=== PATIENT | male | born 1960 | race Caucasian/White ===

== ENCOUNTER 2018-05-25 10:25 | Emergency (ER) | payer OTHER ==
[~2018-05-25] VITALS: Ht 188 cm; Wt 69.8 kg
[2018-05-25] MEDS ORDERED: EYE DROPS (10:44)
[2018-05-25 11:22] VITALS: BP 148/70
== END 2018-05-25 11:23 | disposition home or self-care (01) ==
LOC: M.ERS 10:25
DX: S80.02XA Contusion of left knee, initial encounter (principal); Z88.0 Allergy status to penicillin; W22.8XXA Striking against or struck by other objects, initial encounter; Y93.89 Activity, other specified; Y92.89 Other specified places as the place of occurrence of the external cause; Y99.0 Civilian activity done for income or pay